=== PATIENT | female | born 1990 | race Caucasian/White ===

== ENCOUNTER 2017-04-01 15:35 | Observation (INO) ==
[2017-04-01] MEDS ORDERED: 0.9 % Sodium Chloride 1,000 ML IVC ONE (15:50)
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
[2017-04-01 16:38] LABS: Amphetamine Screen,Urine Negative ng/mL (Cutoff=1000); Barbiturate Screen,Urine Negative ng/mL (Cutoff=200); Benzodiazepines Screen,Urine Positive ng/mL (Cutoff=200); Cannabinoid Screen,Urine Positive ng/mL (Cutoff = 50); Cocaine Screen,Urine Negative ng/mL (Cutoff= 300); Opiate Screen,Urine Negative ng/mL (Cutoff=300); Phencyclidine Screen,Urine Negative ng/mL (Cutoff=25)
[2017-04-01 16:40] LABS: Basophils % 0.3 %; Eosinophils % 0.1 %; Hematocrit 38.6 % (35.3-44.9); Hemoglobin 13.2 g/dL (11.5-15.4); Immature Granulocytes % 0.3 % (0-4); Lymphocytes # 2.5 K/mcL (0.6-4.6); Lymphocytes % 34.1 %; Mean Corpuscular HGB Conc 34.2 g/dL (31.6-35.5); Mean Corpuscular Hemoglobin 29.6 pg (28.0-33.3); Mean Corpuscular Volume 86.5 fL (83.0-100.0); Mean Platelet Volume 9.1 fL (9.4-12.4); Monocytes # 0.5 K/mcL (0.0-1.3); Neutrophils # 4.3 K/mcL (1.6-8.9); Platelet Count 223 K/mcL (140-400); Red Blood Count 4.46 M/mcL (3.82-4.97); Red Cell Distribution Width 13.2 % (11.5-14.5); Segmented Neutrophils % 58.2 %
[2017-04-01 16:42] LABS: Bilirubin,Urine Small (Negative); Blood,Urine Negative (Negative); Clarity,Urine Clear (Clear); Color,Urine Dark Yellow (Yellow); Glucose,Urine (UA) Normal (Normal); Ketones,Urine Trace mg/dL (Negative); Leukocyte Esterase,Urine Trace (Negative); Nitrite,Urine Negative (Negative); Protein,Urine 30 mg/dL (Neg-Trace); Specific Gravity,Urine 1.027 (1.010-1.025); Urobilinogen,Urine Normal (Normal)
[2017-04-01 16:44] LABS: Bacteria,Urine None Seen per hpf (None-Few); Hyaline Casts,Urine Few per lpf (None-Few); RBC,Urine 0-3 per hpf (0-3); Squamous Epithelial Cell,Urine Many per lpf (None-Few); WBC,Urine 0-3 per hpf (0-3)
[2017-04-01 16:57] LABS: BUN/Creatinine Ratio 27 (6-26); Blood Urea Nitrogen 13 mg/dL (6-20); Calcium 9.7 mg/dL (8.6-10.3); Carbon Dioxide 25 mEq/L (23-29); Chloride 109 mEq/L (98-107); Glucose 84 mg/dL (70-105); Osmolality,Calculated 289 (280-300); Potassium 3.9 mEq/L (3.5-5.1); Sodium 140 mEq/L (136-145); eGFR For African Americans > 60 (> 60); eGFR For Non-African Americans > 60 (> 60)
[2017-04-01 17:05] LABS: Acetaminophen < 1.0 mcg/mL (10-30); Ethanol < 10 mg/dL (0-10); Salicylate < 5.0 mg/dL (15.0-30.0)
[2017-04-01 17:21] LABS: Albumin 4.5 g/dL (3.5-5.7); Bilirubin,Direct 0.5 mg/dL (0.0-0.2); Bilirubin,Indirect 2.4 mg/dL (0.0-1.2); Bilirubin,Total 2.9 mg/dL (0.3-1.0)
[2017-04-01 17:27] LABS: Alanine Aminotransferase 85 Units/L (7-52); Albumin/Globulin Ratio 1.5 (1.1-2.2); Alkaline Phosphatase 40 Units/L (34-104); Aspartate Amino Transferase 56 Units/L (13-39); Globulin 3.1 g/dL (2.4-3.5); Lipase 4 Units/L (11-82); Total Protein 7.6 g/dL (6.4-8.9)
[2017-04-01] MEDS ORDERED: Haloperidol Lactate 5 MG/ML VIAL IM PRN (19:37)
[2017-04-01] MEDS ORDERED: Mag Hydrox/Al Hydrox/Simeth 30 ML UDC PO PRN (19:37)
[2017-04-01] MEDS ORDERED: *HR* LORazepam 1 MG TABLET PO PRN (19:37)
[2017-04-01] MEDS ORDERED: *HR* LORazepam 2 MG/ML VIAL IM PRN (19:37)
[2017-04-01] MEDS ORDERED: Ibuprofen 400 MG TABLET PO PRN (19:37)
[2017-04-01] MEDS ORDERED: traZODone 50 MG TABLET PO PRN (19:37)
[2017-04-01] MEDS ORDERED: hydrOXYzine pamoate 25 MG CAPSULE PO PRN (19:37)
[2017-04-01] MEDS ORDERED: MOM Conc 10 ML UD.LIQ PO PRN (19:37)
[2017-04-02] MEDS: clonazePAM 1 MG TABLET PO SCH ×2 (01:36→08:42)
[2017-04-02] MEDS ORDERED: *HR* Buprenorphine HCl 2 MG SUBLINGUAL TABLET SL SCH (09:00)
[2017-04-02 09:20] VITALS: BP 94/64
--- NOTE | 2017-04-02 10:38 | Discharge Summary ---
Date of Encounter: 04/02/17 Time of Encounter: 10:32 Diagnosis - Discharge Diagnosis (1) Major depression, recurrent Status: Acute Qualifiers: Active/Remission status: currently active Major depression episode severity : moderate Qualified Code(s): F33.1 - Major depressive disorder, recurrent, moderate Medications - Discharge Medications Prescriptions: Citalopram [CeleXA] 60 mg PO DAILY #90 tablet Amoxicillin/Clavulanate [Augmentin] 875 mg PO BIDWM #14 tablet 02/23/16 [Rx] Citalopram [CeleXA] 60 mg PO DAILY #90 tablet 04/02/17 [Rx] 3 Allergy/AdvReac Type Severity Reaction Status Date / Time Sulfa (Sulfonamide Allergy Rash Verified 02/28/16 21:28 Antibiotics) Provider Date of admission: 04/01/17 18:57 Primary care physician: PCP NONE Discharging clinician: Angella Juarez Assessment and Plan - Patient/Caregiver Discharge Instructions Activity: resume usual activities as tolerated Diet: regular diet - Follow up Plan Follow up with: NONE,PCP [Primary Care Provider] - Overall status at discharge: Stable Disposition: Home, Self-Care Hospital Course Hospital course: Ms. Perez is a 26 year old female who was admitted on an observational status. She presented to the ER with depressed mood and reported she had overtaken her Neurontin. Claims she took 10 pills. States she knew this was not enough to kill her but that she has been feeling very overwhelmed. Has two young children at home. Angelleon is caring for them. Client states she has never been hospitalized before. Takes Celexa and Klonopin from doctor who prescribes her Subutex. Finds these meds helpful but thinks she needs a counselor and a Psychiatrist. Not currently linked with any services. Physically healthy. Past heroin addiction but has been doing well on the Subutex for several months. Uses THC on occasion but otherwise denies all substance abuse. Does not want to stay in the hospital. Found out her grandmother is in the hospital and she wants to go and see her. This specifications writer spoke with her fiancee who does not have safety concerns and is willing to drive client to see her grandmother. Client states she will stay with her sister so she is not alone. This specifications writer also spoke with her sister who verified client's safety and felt comfortable having client live with her. Maxi is willing to help out with the kids while client takes care of herself. Discussed increasing Celexa until client has her first appointment with outpatient services which client agrees with. Staff will call her Monday with outpatient appointments. Client denies SI and says her overdose was "stupid." - Time Spent with Patient Total time spent providing and/or coordinating discharge services: Quality - Multiple Antipsychotics Patient discharged on 2 or more antipsychotic medications: No Procedures - Procedures Procedures: Medication Management, Crisis Stabilization, Supportive Therapy, Group Therapy Mental Status Exam - Mental Status Exam Patient orientation: Yes Person, Yes Time, Yes Place Level of alertness: Alert Patient appearance: Appropriate, Well Groomed Behavior: calm, cooperative Psychomotor activity: Normal Eye contact: Maintains Eye Contact Mood description: Anxious Affect description: tearful Speech pattern: Normal rate, Normal rhythm, Normal tone Speech Volume: Normal Thought process: Linear, Goal Oriented Thought Content: No Suicidal ideation, No Homicidal ideation, No Overt delusions Perceptual Disturbances: No Auditory hallucinations, No Visual hallucinations Judgment: Fair Insight: Partial
--- NOTE | 2017-04-07 08:57 | Electrocardiograph Report ---
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
== END 2017-04-02 12:00 | disposition home or self-care (01) ==
LOC: EMEROO 15:35 → 1ANU 18:57 → INTOOBSV 18:57 → 1ANU 19:16
PROVIDERS: ADMIT Psychiatry & Neurology Psychiatry; ATTEND Psychiatry & Neurology Psychiatry

== ENCOUNTER → 2018-06-20 00:39 | Observation (INO) ==
[2018-06-20 00:07] LABS: Bilirubin,Urine Negative (Negative); Blood,Urine Negative (Negative); Clarity,Urine Clear (Clear); Color,Urine Yellow (Yellow); Glucose,Urine (UA) Normal (Normal); Ketones,Urine Negative (Negative); Leukocyte Esterase,Urine Small (Negative); Nitrite,Urine Negative (Negative); Protein,Urine Negative (Neg-Trace); Specific Gravity,Urine 1.025 (1.010-1.025); Urobilinogen,Urine Normal (Normal)
[2018-06-20 00:08] LABS: Bacteria,Urine Few per hpf (None-Few); Hyaline Casts,Urine None Seen per lpf (None-Few); RBC,Urine 0-3 per hpf (0-3); Squamous Epithelial Cell,Urine Many per lpf (None-Few); WBC,Urine 15-30 per hpf (0-3)
[2018-06-20 00:23] LABS: Amphetamine Screen,Urine Negative ng/mL (Cutoff=1000); Barbiturate Screen,Urine Negative ng/mL (Cutoff=200); Benzodiazepines Screen,Urine Negative ng/mL (Cutoff=200); Cannabinoid Screen,Urine Positive ng/mL (Cutoff = 50); Cocaine Screen,Urine Negative ng/mL (Cutoff= 300); Opiate Screen,Urine Negative ng/mL (Cutoff=300); Phencyclidine Screen,Urine Negative ng/mL (Cutoff=25)
--- NOTE | 2018-06-20 02:44 | OB/GYN Progress Note ---
Date of Encounter: 06/20/18 Time of Encounter: 00:15 - Assessment and Plan (1) 21 weeks gestation of Status: Acute Discussed appropriate movement at 21 weeks gestation Discharge home with labor precautions Subjective - Subjective Principal diagnosis: decreased fm Interval history: Ms Perez arrives to triage with c/o decreased movement x 1 day. She is 21 weeks gestation. She denies cramping, contractions, vaginal discharge and bleeding. Antepartum ROS: no movement normal Objective - Vital Signs Vital Signs: Intake and Output 06/19/18 06/19/18 06/20/18 15:59 23:59 07:59 Other: Weight 66.723 kg - Exam FHR comments: FHTs 145 baseline with minimal variability which is appropriate for gestation No contractions per toco - Labs Labs: Abnormal lab results Ur Leukocyte Esterase Small (Negative) H 06/19/18 23:58 15-30 per hpf (0-3) H 06/19/18 23:58 Ur Squamous Epith Cells Many per lpf (None-Few) H 06/19/18 23:58 Ur Culture Indicated? YES (NO) A 06/19/18 23:58 U Marijuana (THC) Screen Positive ng/mL (Cutoff = 50) H 06/19/18 23:58
== END | disposition home or self-care (01) ==
LOC: 1NENULAB
PROVIDERS: ADMIT Advanced Practice Midwife; ATTEND Advanced Practice Midwife

== ENCOUNTER → 2018-08-04 07:14 | Observation (INO) ==
[2018-08-04 04:56] VITALS: BP 97/57
[2018-08-04 05:11] LABS: Basophils % 0.3 %; Eosinophils # 0.1 K/mcL (0.0-0.6); Eosinophils % 0.6 %; Hematocrit 33.8 % (35.3-44.9); Hemoglobin 11.7 g/dL (11.5-15.4); Immature Granulocytes % 0.3 % (0-4); Lymphocytes # 2.5 K/mcL (0.6-4.6); Lymphocytes % 27.9 %; Mean Corpuscular HGB Conc 34.6 g/dL (31.6-35.5); Mean Corpuscular Hemoglobin 30.9 pg (28.0-33.3); Mean Corpuscular Volume 89.2 fL (83.0-100.0); Mean Platelet Volume 9.5 fL (9.4-12.4); Monocytes # 0.6 K/mcL (0.0-1.3); Monocytes % 6.3 %; Neutrophils # 5.7 K/mcL (1.6-8.9); Platelet Count 249 K/mcL (140-400); Red Blood Count 3.79 M/mcL (3.82-4.97); Red Cell Distribution Width 12.7 % (11.5-14.5); Segmented Neutrophils % 64.6 %; White Blood Count 8.8 K/mcL (4.3-11.1)
--- NOTE | 2018-08-04 05:13 | OB/GYN History & Physical ---
Date of Encounter: 08/04/18 Time of Encounter: 05:07 Assessment and Plan (1) 28 weeks gestation of Current visit: Yes Status: Acute admitted for observation Dr. Merchant called: Discussed patient's complaints and POC. No new orders from Dr. Merchant at this time. This patient will continue to be a collaboration between CNM and Physician. (2) Fall Current visit: Yes Status: Acute Coags pending monitoring Qualifiers: Encounter type: subsequent encounter Qualified Code(s): W19.XXXD - Unspecified fall, subsequent encounter (3) Decreased movement Current visit: Yes Status: Acute EFM: Reactive Nst Qualifiers: Fetus number: single or unspecified fetus Trimester: second trimester Qualified Code(s): O36.8120 - Decreased movements, second trimester, not applicable or unspecified (4) complicated by subutex maintenance, antepartum Current visit: Yes Status: Acute Subutex 8mg BID (5) History of delivery, currently in second trimester Current visit: Yes Status: Acute Patient on progesterone injections (6) cardiomyopathy Current visit: Yes Status: Acute Will consult hospitalist for evaluation (7) Seizure disorder during Current visit: Yes Status: Acute Possible history of seizures will consult Neurology. Dr. Merchant aware Qualifiers: Trimester: second trimester Qualified Code(s): O99.352 - Diseases of the nervous system complicating , second trimester; G40.909 - Epilepsy, unspecified, not intractable, without status epilepticus History of Present Illness Chief complaint: HX of "seizure", no movement, contractions HPI: Ms. Perez is a 27 year old female @ 28w0d presents to labor and delivery via squad. Patient reports she remembers getting up to got to the bathroom and then waking up on the floor face down. Patient then called the squad. Patient states she has a "seizure" she only has had during this . Patient states she has not ever seen a doctor for the seizure but states her fiances last girl friend had them and he seen the last one she had and said that is what happened. Patient denies LOF or VB. She reports contractions and decreased movement. Patient receives care with Dr. Shields at [facility]. Patient reports history of delivery with last at 36w2d and is currently on Progesterone injections. Last injection was on 08/03/18. Patient also has a history of heroin use but has been off it for 2 years and on subutex 8mg BID that is prescribed by Dr. Hernandez. Past Med Surg Social Fam HX - Past Medical History Source: patient Medical history: migraine, seizures, other Additional medical history: iv drug abuse in the past, PP cardiomyopathy x2 1st an 3rd Psychiatric history: anxiety, depression, prior suicide attempt - Past Surgical History Surgical History: non-contributory Additional surgical history: Lymph node removed behind left ear. wisdom teeth removed - Social History Smoking Status: Current every day smoker Packs per day: .5 Smokeless Tobacco Status: No Alcohol use: none Drug use: opiates, IV Drug Use, prescription drug abuse, other - Family History Paternal Grandmother Living Status: Still Living Hx Family Cardiac Disorders: No Hx Family Respiratory Disorders: No Hx Family Cancer: No Hx Family GI Disorders: No Hx Family Genitourinary Disorders: No Hx Family Endocrine Disorder: No Hx Family Musculoskeletal Disorders: No Hx Family Neuromuscular Disorders: No Hx Family Neurologic Disorders: No Hx Family HEENT Disorders: No Hx Family Autoimmune Disorders: No Hx Family Reproductive Disorders: No Hx Family Psychosocial Disorders: No Hx Family Medical Disorders: No Obstetrical History - Pregnancies : 5 Para: 4 Term: 3 : 1 Ab's: 0 Livin Medications and Allergies Buprenorphine HCl [Subutex] 8 mg SL BID 06/19/18 [History] Vits96/Iron Fum/Folic [ Tablet] 1 each PO DAILY 06/19/18 [History] Klonopin 08/04/18 [History] Progesterone IM QWEEK 08/04/18 [History] Allergy/AdvReac Type Severity Reaction Status Date / Time Sulfa (Sulfonamide Allergy Rash Verified 07/09/18 07:22 Antibiotics) sulfamethoxazole Allergy Rash Verified 07/09/18 07:22 [From Bactrim] trimethoprim [From Bactrim] Allergy Rash Verified 07/09/18 07:22 Review of System OB - Constitutional Constitutional ROS IM: no fever(s), no headache(s) - Cardiovascular Cardiovascular: no chest pain, no edema, no leg edema, no palpitations, no pedal edema, no rapid heart rate, no syncope - Respiratory Respiratory: no cough, no dyspnea - Gastrointestinal Gastrointestinal: no abdominal pain, no constipation, no diarrhea, no heartburn, no nausea, no vomiting - Genitourinary Genitourinary: no abnormal vaginal bleeding, no difficulty urinating, no dysuria, no flank pain, no urinary frequency, no urinary hesitancy, no urinary urgency, no vaginal discharge, no vaginal odor - Neurological Nerological: no abnormal gait, no abnormal speech, no confusion, no dizziness, no frequent falls, no headache(s), no numbness, no syncope, no tremor(s), no vertigo, no weakness, no other visual disturbances Exam - Vital Signs Vital signs: Initial Vital Signs Pulse Resp BP 71 15 97/57 08/04/18 04:44 08/04/18 04:44 08/04/18 04:44 - Constitutional Constitutional: well developed, well nourished, no acute distress, average body habitus - HEENT HEENT: Normocephaly, Mucus Membranes Moist - Neck Neck exam: full ROM, supple - Lungs Respiratory exam: CTAB - Cardiovascular Cardiovascular exam: RRR, +S1, +S2 - Abdomen Abdomen: Present: bowel sounds normal, gravid, non tender - Extremities Extremities exam: full ROM, normal inspection Deep Tendon Reflex Grade: 2+ Normal (no clonus) - Uterus Uterus exam: Present: normal size, normal contour - Comments Comments: FHR 140 bpm moderate variability +15x15 accel no decels noted. Occasional contraction noted. Cat. 1 tracing. Results Result Diagrams: 08/04/18 04:45 08/04/18 04:45 All other labs normal. - VTE Reasons for not Prescribing Prophylaxis: Treatment not Indicated - Low risk for VTE
[2018-08-04 05:24] LABS: INR 0.9; Prothrombin Time 10.6 Seconds (9.4-12.1)
[2018-08-04 05:27] LABS: Activated Partial Thrombo Time 31.9 Seconds (26.0-36.0)
[2018-08-04 05:30] LABS: Alanine Aminotransferase 16 Units/L (7-52); Aspartate Amino Transferase 18 Units/L (13-39); BUN/Creatinine Ratio 26 (6-26); Blood Urea Nitrogen 8 mg/dL (6-20); Carbon Dioxide 22 mEq/L (23-29); Chloride 108 mEq/L (98-107); Lactate Dehydrogenase 107 Units/L (140-271); Potassium 3.7 mEq/L (3.5-5.1); Sodium 137 mEq/L (136-145); Uric Acid 3.5 mg/dL (2.3-7.6); eGFR For African Americans > 60 (> 60); eGFR For Non-African Americans > 60 (> 60)
[2018-08-04 05:44] LABS: Amphetamine Screen,Urine Negative ng/mL (Cutoff=1000); Barbiturate Screen,Urine Negative ng/mL (Cutoff=200); Benzodiazepines Screen,Urine Negative ng/mL (Cutoff=200); Cannabinoid Screen,Urine Negative ng/mL (Cutoff = 50); Cocaine Screen,Urine Negative ng/mL (Cutoff= 300); Opiate Screen,Urine Negative ng/mL (Cutoff=300); Phencyclidine Screen,Urine Negative ng/mL (Cutoff=25)
[2018-08-04 05:45] LABS: Protein/Creatinine Ratio,Urine 0.12 mg/mg (0.00-0.20)
[2018-08-04 06:00] LABS: Bilirubin,Urine Negative (Negative); Blood,Urine Negative (Negative); Clarity,Urine Cloudy (Clear); Color,Urine Yellow (Yellow); Glucose,Urine (UA) Normal (Normal); Ketones,Urine Negative (Negative); Leukocyte Esterase,Urine Negative (Negative); Nitrite,Urine Negative (Negative); Protein,Urine Negative (Neg-Trace); Specific Gravity,Urine 1.012 (1.010-1.025); Urobilinogen,Urine Normal (Normal)
[2018-08-04 06:01] LABS: Bacteria,Urine None Seen per hpf (None-Few); Hyaline Casts,Urine None Seen per lpf (None-Few); RBC,Urine 0-3 per hpf (0-3); Squamous Epithelial Cell,Urine Many per lpf (None-Few); WBC,Urine 0-3 per hpf (0-3)
[2018-08-04 06:24] LABS: Mucus,Urine Moderate (Few)
[~2018-08-04 07:14] MED LIST: Ringers Solution, Lactated 1,000 ML IVC SCH
== END | disposition left against medical advice (07) ==
LOC: 1NENULAB
PROVIDERS: ADMIT Advanced Practice Midwife; ATTEND Advanced Practice Midwife

== ENCOUNTER 2018-08-04 17:37 | Observation (INO) ==
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
--- NOTE | 2018-08-04 14:23 | Electrocardiograph Report ---
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
--- NOTE | 2018-08-04 17:04 | OB Labor Progress Note ---
Date of Encounter: 08/04/18 Time of Encounter: 17:02 Labor Progress Note - Subjective Subjective: Pt stable, no further seizure activity or syncope. - Heart Tones Heart Tones: RNST - Stryker Stryker: no uc's - Interventions Interventions: echo was WNL. IM has seen her and planning EEG and duplex study. Will t/f to the floor.
[~2018-08-04 17:37] MED LIST changes: +*HR* Buprenorphine HCl 8 MG TAB.SUBL SL ONE
[2018-08-04 17:40] VITALS: BP 106/62
--- NOTE | 2018-08-04 18:34 | Event Note ---
Date of Encounter: 08/04/18 Time of Encounter: 18:26 Spoke with hospitalist and Dr. Carranza who advise pt be transferred to [facility] for prolonged EEG monitoring to r/o epilepsy. I spoke with Dr. Carranza about possibility of obtaining EEG, however if it were neg she would still need prolonged monitioring. Given pt's myriad of high risk problems it is felt that pt would be best cared for at [facility]. I came out to discuss care plan with pt and she became quite agitated stating she wasn't goint to [facility]. While discussing options with pt she would not quit texting and was taking phone calls. I advised pt I would be back when she was able to listen and discuss plan with me and she advised me with many explitives that she was leaving. I advised her it would be against medical advice as I felt it important that she continue the evaltuation for causes of syncope vs seizure. Pt ripped her own IV out and immediately left the unit. Security was called to be on standby due to the escalating nature of the situation.
[2018-08-04] MEDS ORDERED: *HR* Buprenorphine HCl 8 MG TAB.SUBL SL SCH (21:00)
== END 2018-08-04 18:26 | disposition left against medical advice (07) ==
LOC: 1NENULAB → 1NENUOBS 17:37
PROVIDERS: ADMIT Registered Nurse; ATTEND Registered Nurse

== ENCOUNTER → 2018-09-20 18:14 | Observation (INO) ==
[2018-09-20 17:39] LABS: Bilirubin,Urine Negative (Negative); Blood,Urine Negative (Negative); Clarity,Urine Cloudy (Clear); Color,Urine Yellow (Yellow); Glucose,Urine (UA) Normal (Normal); Ketones,Urine Negative (Negative); Leukocyte Esterase,Urine Moderate (Negative); Nitrite,Urine Negative (Negative); Protein,Urine Negative (Neg-Trace); Specific Gravity,Urine 1.017 (1.010-1.025); Urobilinogen,Urine Normal (Normal)
[2018-09-20 17:42] LABS: Bacteria,Urine Moderate per hpf (None-Few); Hyaline Casts,Urine None Seen per lpf (None-Few); RBC,Urine 0-3 per hpf (0-3); Squamous Epithelial Cell,Urine Many per lpf (None-Few)
[2018-09-20 17:53] LABS: Amphetamine Screen,Urine Negative ng/mL (Cutoff=1000); Barbiturate Screen,Urine Negative ng/mL (Cutoff=200); Benzodiazepines Screen,Urine Negative ng/mL (Cutoff=200); Cannabinoid Screen,Urine Positive ng/mL (Cutoff = 50); Cocaine Screen,Urine Negative ng/mL (Cutoff= 300); Opiate Screen,Urine Negative ng/mL (Cutoff=300); Phencyclidine Screen,Urine Negative ng/mL (Cutoff=25)
--- NOTE | 2018-09-20 17:58 | Discharge Summary ---
Date of Encounter: 09/20/18 Time of Encounter: 18:03 - Discharge Diagnosis (1) 34 weeks gestation of Priority: Primary Status: Acute Comments: admitted for observation (2) complicated by subutex maintenance, antepartum Priority: Secondary Status: Acute (3) NST (non-stress test) reactive on surveillance Priority: Secondary Status: Acute Comments: FHR baseline 125 bpm moderate variability +15x15 accels no decels noted. - Discharge Medications Prescriptions: No Action Buprenorphine HCl [Subutex] 8 mg SL BID Vits96/Iron Fum/Folic [ Tablet] 1 each PO DAILY Klonopin 1 mg PO BID Home Medications: Buprenorphine HCl [Subutex] 8 mg SL BID 06/19/18 [History] Vits96/Iron Fum/Folic [ Tablet] 1 each PO DAILY 06/19/18 [History] Klonopin 1 mg PO BID 08/04/18 [History] Allergies/Adverse Reactions: Allergy/AdvReac Type Severity Reaction Status Date / Time Sulfa (Sulfonamide Allergy Rash Verified 07/09/18 07:22 Antibiotics) sulfamethoxazole Allergy Rash Verified 07/09/18 07:22 [From Bactrim] trimethoprim [From Bactrim] Allergy Rash Verified 07/09/18 07:22 Data Procedures and tests throughout hospitalization: Laboratory Tests 09/20/18 09/20/18 17:24 17:24 Urine Color Yellow Urine Clarity Cloudy A Urine pH 6.0 Ur Specific [place] 1.017 Urine Protein Negative Urine Glucose (UA) Normal Urine Ketones Negative Urine Blood Negative Urine Nitrite Negative Urine Bilirubin Negative Urine Urobilinogen Normal Ur Leukocyte Esterase Moderate H Urine Opiates Screen Negative Ur Buprenorphine Scrn Positive H Ur Barbiturates Screen Negative Ur Phencyclidine Scrn Negative Ur Amphetamines Screen Negative U Benzodiazepines Scrn Negative Urine Cocaine Screen Negative U Marijuana (THC) Screen Positive H Ur Drug Screen Interp See Below Labs on day of discharge: Labs from last 24 hours 09/20/18 09/20/18 17:24 17:24 Urine Color Yellow Urine Clarity Cloudy A Urine pH 6.0 Ur Specific [place] 1.017 Urine Protein Negative Urine Glucose (UA) Normal Urine Ketones Negative Urine Blood Negative Urine Nitrite Negative Urine Bilirubin Negative Urine Urobilinogen Normal Ur Leukocyte Esterase Moderate H Urine Opiates Screen Negative Ur Buprenorphine Scrn Positive H Ur Barbiturates Screen Negative Ur Phencyclidine Scrn Negative Ur Amphetamines Screen Negative U Benzodiazepines Scrn Negative Urine Cocaine Screen Negative U Marijuana (THC) Screen Positive H Ur Drug Screen Interp See Below Date of admission: 09/20/18 17:10 Discharging clinician: Ramonita Zavala Anticipated date of discharge: 09/20/18 - Patient Status Disposition: Home, Self-Care Condition: Good Functional capacity at discharge: independent ambulation - Discharge Instructions Follow Up With: Kp Shields MD [Non-Partnered Physician] - - Diet and Activity Activity: increase activity as tolerated Diet: regular diet Hospital Course MANAGER INVENTORY MANAGEMENT Hospital course: Patient is a 27 y/o @ 34w5d gestation presented to labor and delivery with complaints of vaginal pressure and decreased movement. Patient denies LOF or contractions. Patient does reports some pink tinged mucus discharge. Patient denies any urinary symptoms. Time Attestation: Total time spent providing and/or coordinating discharge services: Time Spent: Less than 30 minutes Exam - Constitutional General appearance IM: A&O X 3, pleasant, answers questions appropriately - Respiratory Respiratory exam: Present: CTAB - Cardiovascular Cardiovascular exam IM: Present: RRR, +S1, +S2 - GI/Abdominal GI/Abdominal exam IM: normal bowel sounds - Extremities Exam Extremities exam IM: Present: full ROM, normal capillary refill, normal inspection - Neurological Exam Neurological exam: alert, oriented X3, reflexes normal - Other Additional findings: FHR 125 bpm moderate variability +15x15 accels no decels noted. Irregular contractions. Cat. 1 tracing. SVE FT/50/ballotable - VTE Reasons for not Prescribing Prophylaxis: Treatment not Indicated - Low risk for VTE
== END | disposition home or self-care (01) ==
LOC: 1NENULAB
PROVIDERS: ADMIT Obstetrics & Gynecology; ATTEND Obstetrics & Gynecology